=== PATIENT | female | born 1980 | race Caucasian/White ===

== ENCOUNTER 2022-04-04 23:05 | Emergency (ER) | payer SELFPAY ==
[~2022-04-04] VITALS: Ht 170.2 cm; Wt 68.0 kg
--- NOTE | 2022-04-04 23:13 | NUR ---
ADDENDUM: Intravenous End Time Documentation: 1. Normal saline 1 liter (IV-WO) : start time: 3 PM ; end time: 12 AM : IV site:[facility] PIV # 20 Port # 1
[2022-04-04] MEDS ORDERED: IV NS 0.9% 1,000 ML BAG IV ONE (23:30)
[2022-04-04] MEDS ORDERED: ONDANSETRON HCL/PF 4 MG/2 ML VIAL IVP ONE (23:30)
--- NOTE | 2022-04-04 23:30 | NUR ---
BIBRA A.O X 3, PT C/O DIFFUSED SHARP ABDOMINAL PAIN WITH N/V AFTER EATING SUSHI. UNABLE TO HOLD FOOD DOWN PER PT.
[2022-04-04 23:48] LABS: BASOPHILS % (AUTO) 0.3 % (0.0-2.0); EOSINOPHILS % (AUTO) 0.5 % (0.0-6.0); HEMATOCRIT 37 % (33-45); HEMOGLOBIN 12.3 g/dL (11.5-14.8); LYMPHOCYTES # (AUTO) 1.8 K/uL (0.8-4.8); LYMPHOCYTES % (AUTO) 15.1 % (20.0-44.0); MEAN CORPUSCULAR HGB CONC 33 g/dl (31.0-36.0); MEAN CORPUSCULAR VOLUME 93 fL (82-100); MONOCYTES # (AUTO) 0.6 K/uL (0.1-1.30); MONOCYTES % (AUTO) 4.8 % (2.0-12.0); NEUTROPHILS # (AUTO) 9.3 K/uL (1.8-8.9); NEUTROPHILS % (AUTO) 79.3 % (43.0-81.0); PLATELET COUNT (AUTO) 402 K/uL (150-450); WHITE BLOOD COUNT (AUTO) 11.7 K/uL (4.3-11.0)
[2022-04-04] MEDS ORDERED: ONDANSETRON HCL/PF 4 MG/2 ML VIAL ONE (23:53)
[2022-04-04 23:56] LABS: CALCIUM, SERUM 9.3 mg/dL (8.5-10.1); POTASSIUM 3.9 mmol/L (3.5-5.1)
[2022-04-05 00:01] LABS: ALBUMIN 4.1 g/dL (3.4-5.0); BILIRUBIN,DIRECT 0.1 mg/dL (0.0-0.2); BILIRUBIN,TOTAL 0.3 mg/dL (0.2-1.0); TOTAL PROTEIN, SERUM 7.5 g/dL (6.4-8.2)
--- NOTE | 2022-04-05 00:13 | NUR ---
ADDENDUM: Intravenous End Time Documentation: Normal saline 1 liter (IV-WO) : start time: 0013 PM ; end time: 0113 AM : IV site:[facility] PIV # 20 Port # 1
[2022-04-05] MEDS ORDERED: ONDA4TAB11 PO (00:17)
--- NOTE | 2022-04-05 01:09 | NUR ---
FRIEND DAYSI WOULD LIKE TO BE CALLED WHEN PT IS READY FOR DISCHARGE,
[2022-04-05] MEDS ORDERED: METOCLOPRAMIDE HCL 10 MG/2 ML VIAL ONE (01:26)
[2022-04-05] MEDS ORDERED: METOCLOPRAMIDE HCL 10 MG/2 ML VIAL IV ONE (01:30)
--- NOTE | 2022-04-05 01:45 | NUR ---
PT ABLE TO DO PO CHALLENGE. NOTIFIED
[2022-04-05 02:18] VITALS: BP 109/64
--- NOTE | 2022-04-05 02:18 | NUR ---
PT DISCHARGED IN STABLE CONDITION
== END 2022-04-05 02:19 | disposition home or self-care (01) ==
LOC: ER 23:08
DX: A05.9 Bacterial foodborne intoxication, unspecified (principal); Z60.2 Problems related to living alone
CPT/HCPCS: 36415; 80048; 80076; 83690; 85025; 96361; 96374; 96375; 99291; J2405; J2765; J7030